=== PATIENT | male | born 1940 | race Caucasian/White ===

== ENCOUNTER 2018-08-29 15:18 | Emergency (ER) | payer OTHER ==
--- NOTE | 2018-08-29 15:45 | EDPHY ---
HPI/HX/ROS/PE/MDM Narrative: CHIEF COMPLAINT: HISTORY OF PRESENT ILLNESS: This patient is a non-anticoagulated 78 year old male presenting with left- sided rib pain following a mechanical fall five days ago, 08/25/18. He was visiting his son-in-law and tripped over some clods of dirt and sod outside. He fell on his back and then while trying to get up, fell again face down onto the ground, striking his forehead, nose, and left elbow. He denies weakness or syncope prior to the event. He denies any loss of consciousness. Following this , he had significant pain in his back and left chest. This has persisted and today, he went to his PCP's office for x-rays. Went home and received a call reporting he had rib fractures. He generally uses a cane to ambulate, but feels more "wobbly" today than usual. He endorses some increased discomfort with deep inspiration. No abdominal pain or hematuria. His pain is well-controlled with 800mg Ibuprofen at home. No fever, chills, chest pain, shortness of breath, palpitations, vomiting, diarrhea, urinary complaints, headache, lightheadedness. REVIEW OF SYSTEMS: A comprehensive 10 system review of systems is otherwise negative aside from elements mentioned in the history of present illness and medical decision making. PAST MEDICAL HISTORY: Hernia repair. SOCIAL HISTORY: PCP Dr. Karo Min at [facility]. . No alcohol, tobacco , or illicit drug use. VITAL SIGNS: Reviewed by me GENERAL: Pleasant elderly male, well-developed, well-nourished, resting comfortably in no respiratory distress. HEENT: Healing abrasions to left forehead and bridge of nose. Eyes: No icterus, no injection. PERRL, EOMI. No bony tenderness on face. Mouth: moist mucous membranes. No erythema or lesions. Neck: supple with no adenopathy. No tenderness to palpation. LUNGS: Clear to auscultation bilaterally, no wheezes, rhonchi or rales. CHEST: Tenderness to left lateral chest wall. No crepitus. No subq air auscultated. CARDIAC: Regular rate and rhythm, no rubs, murmurs or gallops. ABDOMEN: Soft, nontender, nondistended, bowel sounds normal. BACK: No CVA tenderness. EXTREMITIES: Skin tear to left elbow, occlusive dressing in place. Removed: some watery discharge present . No edema. Range of motion is normal throughout. NEURO: Alert and oriented, EARLY x 4, no sensory changes. Gait stable with minimal assistance/ patient states normal with cane. SKIN: Warm and dry, no rash. PSYCHIATRIC: Normal mentation, no agitation. Portions of this note were transcribed by a medical laboratory technician. I personally performed a history, physical exam, medical decision making, and confirmed accuracy of information the transcribed note. ED Course: 78 y/o male presents with left chest wall pain and tenderness after a fall five days ago. Exam reveals a skin tear to the left elbow with watery discharge beneath an occlusive dressing. Plan to clean and dress wound to left elbow under standard ED protocol. CXR this morning showed suspected fracture to anterolateral right fourth and fifth ribs. Patient with minimal to no right sided pain. Plan for left rib series x-ray as patient's discomfort is primarily on the left despite finding right-sided fractures on x-ray. Reviewed x-ray of left ribs. No acute fractures seen to the left lower ribs. Reassessed patient. Discussed imaging results. Plan to discharge home in good condition with prescription for ibuprofen 800mg. Follow up and return precautions discussed. He is comfortable with this plan. MDM: Diff dx of patients fall considered including but not limited to intracranial injury, fracture, long bone injury, rib fracture, pneumothorax, intraabdominal injury, laceration, contusion, abrasion. - Data Points Imaging Results: Rib series: Impression: 1. No acute fractures seen about the left lower ribs. 2. Old healed fracture anterolateral left seventh rib. Dictated By: Ehsan Jackson MD CXR: Impression: 1. Fracture suspected anterolateral right fourth and fifth ribs. 2. Mild prominent interstitial markings at the lung bases laterally bilaterally. Consider mild interstitial lung disease. Dictated By: Ehsan Jackson MD General Time Seen by Provider: 08/29/18 15:31 Initial Vital Signs: Initial Vital Signs Temperature (C) 37.1 C 08/29/18 15:22 Heart Rate 81 08/29/18 15:22 Respiratory Rate 18 08/29/18 15:22 Blood Pressure 99/62 L 08/29/18 15:22 O2 Sat (%) 95 08/29/18 15:22 O2 Delivery Mode Room Air Allergies/Adverse Reactions: Penicillins Allergy (Verified 08/29/18 15:22) Home Medications: Medication Instructions Recorded Ibuprofen 800 mg PO TID PRN #20 tablet 08/29/18 Departure - Departure Disposition: Home, Routine, Self-Care Clinical Impression: Fracture of rib of right side Qualifiers: Encounter type: initial encounter Rib fracture type: multiple ribs Fracture type: closed Qualified Code(s): S22.41XA - Multiple fractures of ribs, right side, initial encounter for closed fracture Contusion of left chest wall Qualifiers: Encounter type: initial encounter Qualified Code(s): S20.212A - Contusion of left front wall of thorax, initial encounter Abrasion of left elbow Qualifiers: Encounter type: initial encounter Qualified Code(s): S50.312A - Abrasion of left elbow, initial encounter Condition: Good Instructions: Rib Fracture (ED), Contusion in Adults (ED), Rib Contusion (ED) Additional Instructions: You have 2 small fractures of the ribs on the right side. These may be new or, they may be old fractures since you do not have significant pain in that area. I see no fractures on your left side. Okay to use ibuprofen 800 mg 3 times a day with food. Please leave the dressing on your left elbow until you are seen by your primary care physician. Please follow up with your primary care physician within the next 2-3 days. Be seen sooner if you are worsening, especially if he develops shortness of breath, lightheadedness, dizziness, continued to fall. Please be very careful when walking and use your cane. Referrals: Karo Min MD [Medical Doctor] - As per Instructions Prescriptions: Ibuprofen 800 mg PO TID PRN #20 tablet PRN Reason: pain Report Scribed for: Jasmyn Conrad Report Scribed by: Charla Hare Date of Report: 08/29/18 Time of Report: 17:12
[2018-08-29 16:49] VITALS: BP 105/75
== END 2018-08-29 17:02 | disposition home or self-care (01) ==
LOC: EDSTATUS 15:18
DX: S22.41XA Multiple fractures of ribs, right side, initial encounter for closed fracture (principal); S20.212A Contusion of left front wall of thorax, initial encounter; S50.312A Abrasion of left elbow, initial encounter; W01.0XXA Fall on same level from slipping, tripping and stumbling without subsequent striking against object, initial encounter

== ENCOUNTER 2018-12-01 07:25 | Day surgery (SDC) | payer OTHER ==
[2018-12-01] MEDS ORDERED: NALOXONE HCL 0.4 MG/ML INJ IVP PRN (08:21)
[2018-12-01] MEDS ORDERED: fentaNYL 100 MCG/2 ML INJ IVP PRN (08:21)
[2018-12-01] MEDS ORDERED: FLUMAZENIL 0.5 MG/5 ML MDV IVP PRN (08:21)
[2018-12-01] MEDS ORDERED: GLUCAGON HCL 1 MG VIAL IVP PRN (08:21)
[2018-12-01] MEDS ORDERED: ALTEPLASE 2 MG VIAL IVP PRN (08:21)
[2018-12-01] MEDS ORDERED: PROTAMINE SULFATE 50 MG/5 ML VIAL IVP PRN (08:21)
[2018-12-01] MEDS ORDERED: MIDAZOLAM 2 MG/2 ML VIAL IVP PRN (08:21)
[2018-12-01] MEDS ORDERED: MEPERIDINE 25 MG/ML SYR IVP PRN (08:21)
[2018-12-01] MEDS ORDERED: HEPARIN 10,000 UNIT/10 ML MDV (1,000 UNIT/ML) IVP PRN (08:21)
[2018-12-01] MEDS ORDERED: NS 1,000 ML IV SCH (08:30)
[2018-12-01] MEDS ORDERED: CLINDAMYCIN 600 MG/DEXTROSE 50 ML IV ONE (09:00)
[2018-12-01] MEDS ORDERED: VANCOMYCIN HCL/NORMAL SALINE 250 ML IV ONE (09:30)
[2018-12-01 09:50] LABS: INR 0.99 (0.83-1.16); PROTIME(PATIENT) 13.3 SEC (12.0-15.0)
[2018-12-01] MEDS ORDERED: FLUMAZENIL 0.5 MG/5 ML MDV IVP ONE (10:29)
[2018-12-01] MEDS ORDERED: fentaNYL 100 MCG/2 ML INJ ONE ×2 (10:29→11:03)
[2018-12-01] MEDS ORDERED: NALOXONE HCL 0.4 MG/ML INJ ONE (10:29)
[2018-12-01] MEDS ORDERED: MIDAZOLAM 2 MG/2 ML VIAL ONE ×2 (10:29→11:02)
--- NOTE | 2018-12-01 11:36 | PDPROPOC ---
Sedation Plan of Care Sedation Plan of Care: vital signs stable, mental status noted, patient educated of risks, benefits, alternatives, patient can tolerate sedation ASA Classification: ASA 2 Planned drugs: fentanyl, midazolam Mallampati Score: Class 1 Mallampati Reference Image: Patient passed 3-3-2 rule?: Yes
--- NOTE | 2018-12-01 11:38 | PDRADPN ---
Radiology Procedure Note Date of Procedure: 12/01/18 Radiologist: Joseline Johns Anesthesia: IV Sedation Pre-op Diagnosis: CHROHNS Post-op Diagnosis: SAME Indication: NEEDS ACCESS FOR DETENTION INFUSIONS Procedure: PORT PLACEMENT Inf/Abcess present in the surg proc area at time of surgery?: No
[2018-12-01] MEDS ORDERED: ACETAMINOPHEN 325 MG TAB PO PRN (11:39)
[2018-12-01] MEDS ORDERED: ONDANSETRON 4 MG/2 ML VIAL IVP PRN (11:39)
--- NOTE | 2018-12-01 11:49 | PDGENHP ---
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 Relevant Physical Exam: CHEST WALL EXAMINED. Cardiorespiratory Assessment: RRR, CTA
[2018-12-01 14:01] VITALS: BP 118/62
[2018-12-01] MEDS ORDERED: LIDOCAINE 1% 300 MG/30 ML SDV ONE (14:08)
== END 2018-12-01 13:20 | disposition home or self-care (01) ==
LOC: FIMAGING 07:25
PROVIDERS: ATTEND Radiology Diagnostic Radiology
PROC: B543ZZA Ultrasonography of Right Jugular Veins, Guidance (ICD-10-PCS; principal; 2018-12-01 11:50)
PROC: B5131ZZ Fluoroscopy of Right Jugular Veins using Low Osmolar Contrast (ICD-10-PCS; principal; 2018-12-01 11:50)
PROC: 02HV33Z Insertion of Infusion Device into Superior Vena Cava, Percutaneous Approach (ICD-10-PCS; principal; 2018-12-01 11:50)
PROC: 0JH60XZ Insertion of Tunneled Vascular Access Device into Chest Subcutaneous Tissue and Fascia, Open Approach (ICD-10-PCS; principal; 2018-12-01 11:50)
DX: K50.90 Crohn's disease, unspecified, without complications (principal)
CPT/HCPCS: J1642; J2250; J2310; J3010; J3370

== ENCOUNTER → 2019-05-04 | Outpatient (CLI) | payer OTHER | LOC: FIMAGING 10:15 ==